=== PATIENT | female | born 1935 | race Caucasian/White ===

== ENCOUNTER 2016-05-01 17:00 | Inpatient (IN) | payer MEDICARE, OTHER ==
[2016-05-01] MEDS ORDERED: DILTIAZEM 25 MG/5 ML VIAL IV ONE (17:13)
--- NOTE | 2016-05-01 17:36 | DIRPT ---
CLINICAL DATA: Shortness of breath. EXAM: PORTABLE CHEST 1 VIEW COMPARISON: 02/25/2016 FINDINGS: The heart size and mediastinal contours are within normal limits. Blunting of the left costophrenic angle is identified. The visualized skeletal structures are unremarkable. IMPRESSION: Blunting of left costophrenic angle noted suspicious for left effusion. Electronically Signed By: Landy Devlin M.D. On: 05/01/2016 17:33
[2016-05-01] MEDS ORDERED: Diltiazem HCl 100 MG in D5W 100 ML IV SCH (17:39)
[2016-05-01 17:43] LABS: AUTOMATED BASOPHIL 0.9 % (0-2); AUTOMATED EOSINOPHIL 0.5 % (0-5); AUTOMATED LYMPH 22.3 % (17-44); AUTOMATED MONOCYTE 10.4 % (3-10); AUTOMATED NEUTROPHIL 65.9 % (45-76); MPV 8.1 fL (7.4-10.4)
[2016-05-01 18:02] LABS: LEUKOCYTES/URINE NEG (NEGATIVE); NITRITE/URINE NEG (NEGATIVE); RBC/URINE 0-2 (0-5); URINE OCCULT BLOOD NEG (NEG/TRACE); WBC/URINE 0-2 (0-5)
[2016-05-01 18:06] LABS: BLOOD UREA NITROGEN 18 MG/DL (7-17); CALC CORRECTED 9.7 MG/DL (8.4-10.2); CALCIUM 9.5 MG/DL (8.4-10.2); CALCULATED OSMOLALITY 269 MOs/Kg (270-290); CHLORIDE 102 mEq/L (98-107); GLUCOSE 124 mg/dL (70-99); SODIUM LEVEL 138 mEq/L (137-146); TOTAL PROTEIN 6.6 G/DL (6.3-8.2)
--- NOTE | 2016-05-01 18:09 | EDPRACDOC ---
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 01/02/16 Furosemide [Lasix] 40 mg PO DAILY #60 tablet 01/02/16 Amiodarone [Cordarone, Pacerone] 200 mg PO DAILY 05/01/16 Cholecalciferol (Vitamin D3) [Vitamin D3] 2,000 unit PO DAILY 05/01/16 Allergies/Adverse Reactions: Allergies Allergy/AdvReac Type Severity Reaction Status Date / Time No Known Allergies Allergy Verified 05/01/16 17:13 - History of Present Illness Onset: travel pta HPI: PT SAID THAT SHE CAN'T CATCH HER BREATH. SHE WENT TO SEE HER PCP AND WAS SENT HERE. PT DENIES CP. SHE SAID THAT SHE CAN'T FEEL THE IRREGULAR HR. Symptoms Started: Reports: Suddenly Relevant History: Reports: Arrhythmia Pulse is: Irregular, Rapid Worsens with: Reports: Exertion Associated signs & symptoms: Reports: None Chest Pain Location: Reports: No Pain Pain Quality: Reports: None Pain Radiation: Reports: None ED Past Medical History - Patient Medical History Neurological History: Reports: Cerebrovascular Accident (WITH RIGHT SIDED WEAKNESS. 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 PER FAMILY) Cardiac History: Reports: Atrial Fibrillation (Paroxysmal in 2009; resolved.), Hypertension, Hypercholesterolemia Psychological History: Denies: Depression, Substance Use Disorder Surgical History: Reports: Hysterectomy (1980s), Hernia Surgery (Right inguinal hernia repair), Other (Hemorrhoidectomy) - Family Medical History Reports: Cardiac Disorders (Sibling.). Denies: Cancer (Brother with colon polyps but no colon cancer) - Social Medical History Smoking Status: Never smoker Social History: Denies: Substance Use Disorder ETOH: None Substance Abuse: None Lives In: Home EDM Review of Systems - Review of Systems ROS Negative Except as Marked: Yes All systems reviewed and were negative except as marked Respiratory: Shortness of Breath - Physical Exam Constitutional: Alert (Awake), No apparent distress Oriented to: Time, Person, Place Last recorded Vital Signs: Last Vital Signs Temp 97.8 F 05/01/16 17:13 Pulse 114 05/01/16 18:06 Resp 18 05/01/16 18:06 BP 166/87 05/01/16 18:06 Pulse Ox 93 05/01/16 18:06 Oxygen Pulse Oxygen Saturation 93 O2 Device Room Air Oxygen Flow Rate Fraction of Inspired Oxygen ( FIO2) - HEENT Head: Normal ( normocephalic) Eye Exam: Normal (PERRL, EOMI, Sclera white) Oropharynx: Normal (Pharynx:Moist without exudate,Gums-no swelling) ENT EAC: Normal TMJ: Normal Nose: No Symptoms Reported (septum midline) Neck: Normal (FROM, trachea at midline) - Respiratory/Cardiovascular Respiratory: Normal - CTA Cardiovascular: Tachycardia, Irregular - GI Auscultation: Normal (NABS) Palpation: Normal (Soft,No rebound or guarding, non distended) Tenderness: Non tender Abraham's Sign: Negative - Musculoskeletal Back: Normal (Non-Tender) Extremities: Normal (Normal tone, Pulses 2+ No cyanosis or edema, FROM) - Integumentary Skin: Normal, Warm, Dry Lymphatics: Normal (no adenopathy) - Neurologic Memory Impaired: Normal Motor Function: Normal (Normal tone, Pulses 2+ No cyanosis or edema, FROM) Cranial Nerve: Normal (CN II-X11 intact sensation, strength 5/5) Cerebellar: Normal Mood Description: Normal Thought: Coherent Perception: Normal - Re-evaluation Re-evaluation 1 Re-evaluation Time: 18:33 (HR STILL HIGH. PT NOW HAS A FEVER.) - Results 05/01/16 17:10 05/01/16 17:31 WBC 15.9 xk/uL (3.8-10.8) H 05/01/16 17:10 RBC 4.45 xM/uL (4.20-5.40) 05/01/16 17:10 Hgb 13.6 g/dL (12.0-16.0) 05/01/16 17:10 Hct 41.4 % (36-47) 05/01/16 17:10 MCV 93 fL (81-99) 05/01/16 17:10 MCH 30.6 pg (27-32) 05/01/16 17:10 MCHC 32.9 g/dl (33-36) L 05/01/16 17:10 RDW 16.3 % (11.5-14.5) H 05/01/16 17:10 Plt Count 217 xk/uL (130-400) 05/01/16 17:10 MPV 8.1 fL (7.4-10.4) 05/01/16 17:10 Neut % (Auto) 65.9 % (45-76) 05/01/16 17:10 Lymph % (Auto) 22.3 % (17-44) 05/01/16 17:10 [place] % (Auto) 10.4 % (3-10) H 05/01/16 17:10 Eos % (Auto) 0.5 % (0-5) 05/01/16 17:10 Baso % (Auto) 0.9 % (0-2) 05/01/16 17:10 Absolute Neuts (auto) 10.34 xk/uL (1.7-8.2) H 05/01/16 17:10 Absolute Lymphs (auto) 3.50 xk/uL (0.65-4.75) 05/01/16 17:10 Urine Color Yellow 05/01/16 17:43 Urine Clarity Clear 05/01/16 17:43 Urine pH 5.0 (5.0-8.0) 05/01/16 17:43 Ur Specific [place] 1.015 (1.003-1.035) 05/01/16 17:43 Urine Protein Neg (NEG/TRACE) 05/01/16 17:43 Urine Glucose (UA) Neg (NEGATIVE) 05/01/16 17:43 Urine Ketones Neg (NEGATIVE) 05/01/16 17:43 Urine Occult Blood Neg (NEG/TRACE) 05/01/16 17:43 Urine Nitrite Neg (NEGATIVE) 05/01/16 17:43 Urine Bilirubin Neg (NEGATIVE) 05/01/16 17:43 Urine Urobilinogen <2.0 MG/DL (0-1) 05/01/16 17:43 Ur Leukocyte Esterase Neg (NEGATIVE) 05/01/16 17:43 Urine RBC 0-2 (0-5) 05/01/16 17:43 Urine WBC 0-2 (0-5) 05/01/16 17:43 Ur Epithelial Cells Occ 05/01/16 17:43 Urine Bacteria Few (NEG/FEW) 05/01/16 17:43 Urine Mucus Occ (NEG/OCC) 05/01/16 17:43 Lab Results 05/01/16 05/01/16 17:43 17:10 WBC 15.9 H RBC 4.45 Hgb 13.6 Hct 41.4 MCV 93 MCH 30.6 MCHC 32.9 L RDW 16.3 H Plt Count 217 MPV 8.1 Neut % (Auto) 65.9 Lymph % (Auto) 22.3 [place] % (Auto) 10.4 H Eos % (Auto) 0.5 Baso % (Auto) 0.9 Absolute Neuts (auto) 10.34 H Absolute Lymphs (auto) 3.50 Urine Color Yellow Urine Clarity Clear Urine pH 5.0 Ur Specific [place] 1.015 Urine Protein Neg Urine Glucose (UA) Neg Urine Ketones Neg Urine Occult Blood Neg Urine Nitrite Neg Urine Bilirubin Neg Urine Urobilinogen <2.0 Ur Leukocyte Esterase Neg Urine RBC 0-2 Urine WBC 0-2 Ur Epithelial Cells Occ Urine Bacteria Few Urine Mucus Occ - EKG EKG #1 Initial EKG Time: 17:09 -: Yes EKG interpreted by me Rate: bpm: 122 [place]: Normal Rhythm: Afib Block: None Hypertrophy: None ST: Normal Comparison: 12/31/15 - Diagnostic Imaging Chest Image interpreted by: Radiologist Blunting of left costophrenic angle noted suspicious for left effusion. ED Critical Care Note - Critical Care Note Total Time (mins): 30 - Departure Yes I personally saw and evaluated the patient. Disposition: Admit IP To This Hospital Condition: Serious Final Diagnosis: Atrial fibrillation with RVR, Fever, BIANCHI ZONE TROPONIN, Pleural effusion, left Instructions: Chest Pain (ED), A-fib (Atrial Fibrillation) (ED) Education/Counseling Given To: Patient Education/Counseling Given Regarding: Diagnosis, Treatment Referrals: Jake Diallo MD [Primary Care Provider] - One Week Prescriptions: No Action Rosuvastatin [Crestor] 10 mg PO HS Potassium Chloride [Klor-Con M20] 20 meq PO DAILY Losartan/Hydrochlorothiazide [Hyzaar 50-12.5 Tablet] 1 tab PO DAILY HydrALAZINE (Cardiovascular) [Apresoline] 12.5 mg PO TID Mirtazapine [Remeron] 15 mg PO HS Furosemide [Lasix] 40 mg PO DAILY #60 tablet Aspirin [Aspirin EC] 325 mg PO DAILY #120 tablet. Cholecalciferol (Vitamin D3) [Vitamin D3] 2,000 unit PO DAILY Amiodarone [Cordarone, Pacerone] 200 mg PO DAILY Forms: ED Discharge Instructions Decision to Admit Time: 18:43 Decision to admit date: 05/01/16 Decision to admit: from ED - Physician Consulted Hospitalist Provider Called: Katie Tillman
[2016-05-01 18:17] LABS: PARTIAL THROMB. TIME 20.1 SEC (22-35); PT-INR 1.1
[2016-05-01] MEDS ORDERED: METOPROLOL 5 MG/5 ML SDV IV ONE (18:21)
[2016-05-01] MEDS ORDERED: ASPIRIN 325 MG TAB PO ONE (18:32)
[2016-05-01] MEDS ORDERED: ACETAMINOPHEN 325 MG/TAB TABLET PO ONE (18:33)
[2016-05-01] MEDS ORDERED: ACETAMINOPHEN 325 MG/TAB TABLET PO PRN (19:34)
[2016-05-01] MEDS ORDERED: ONDANSETRON HCL 4 MG/2 ML VIAL IV PRN (19:34)
[2016-05-01] MEDS ORDERED: Aluminum;Magnesium;Simethicone 30 ML UDC PO PRN (19:34)
[2016-05-01] MEDS ORDERED: SODIUM CHLORIDE 0.9% 3 ML FLUSH FLUSH PRN (19:34)
[2016-05-01] MEDS ORDERED: BENZONATATE 100 MG PERLES PO PRN (19:34)
[2016-05-01] MEDS ORDERED: MAGNESIUM HYDROXIDE 30 ML BOTTLE PO PRN (19:34)
[2016-05-01] MEDS ORDERED: TUSSIONEX 5 ML ORAL SYRINGE PO PRN (19:34)
[2016-05-01] MEDS ORDERED: IBUPROFEN 400 MG TAB PO PRN (19:34)
[2016-05-01] MEDS ORDERED: IBUPROFEN 400 MG TAB PO ONE ×2 (19:47→19:50)
--- NOTE | 2016-05-01 19:49 | HISTPHYS ---
- Chief Complaint Patient sent in from urgent care with atrial fibrillation with rapid ventricular response - History of Present Illness This is a very pleasant 80-year-old female with a long history of paroxysmal atrial fibrillation hospitalization in December of 2015 for bradycardia at which point her rate control medications were held she was discharged home in ultimately restarted on amiodarone. She presented today to her local urgent care with complaints of cough weakness fever tachycardia and body aches for about 2 days with associated shortness of breath. During evaluation she was noted to be in atrial fibrillation with a rapid ventricular response with initial heart rates in the 140s and she was transferred to [facility] for further evaluation and management. In our emergency department she was given fluids and started on an diltiazem drip after a diltiazem bolus and her heart rate has improved. On initial evaluation in our emergency department the patient did not have a fever however on recheck her temperature was elevated above 101. In the emergency department the patient is confused and has become more so where initially she was able to tell me that she did have any pain she has become more confused with rising temperature. We are going to try some ibuprofen at the present time. She will be admitted into the hospital for atrial fibrillation with rapid ventricular response brought on by flu-like illness. - Medical History Cardiac History: Reports: Atrial Fibrillation (Paroxysmal in 2009; resolved.), Hypertension, Hypercholesterolemia Respiratory History: Reports: No Significant History GI/ History: Reports: No Significant History Musculoskeletal History: Reports: No Significant History Systemic History: Reports: No Significant History Neurological History: Reports: Cerebrovascular Accident (WITH RIGHT SIDED WEAKNESS. 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 PER FAMILY) Psychological History: Denies: Depression, Substance Use Disorder - Surgical History Reports: Hysterectomy (), Hernia Surgery (Right inguinal hernia repair), Other (Hemorrhoidectomy) - Medictions/Allergies Allergies No Known Allergies Allergy (Verified 05/01/16 17:13) Current Medication List: Reviewed Home Medications Losartan/Hydrochlorothiazide [Hyzaar 50-12.5 Tablet] 1 tab PO DAILY 06/28/14 Potassium Chloride [Klor-Con M20] 20 meq PO DAILY 06/28/14 Rosuvastatin [Crestor] 10 mg PO HS 06/28/14 HydrALAZINE (Cardiovascular) [Apresoline] 12.5 mg PO TID 12/31/15 Mirtazapine [Remeron] 15 mg PO HS 12/31/15 Aspirin [Aspirin EC] 325 mg PO DAILY #120 tablet. 01/02/16 Furosemide [Lasix] 40 mg PO DAILY #60 tablet 01/02/16 Amiodarone [Cordarone, Pacerone] 200 mg PO DAILY 05/01/16 Cholecalciferol (Vitamin D3) [Vitamin D3] 2,000 unit PO DAILY 05/01/16 - Family History Reports: Cardiac Disorders (Sibling.). Denies: Cancer (Brother with colon polyps but no colon cancer) - Social History Travel Outside of [place] in the Last 3 Months?: No Lives: with Spouse Smoking Status: Never smoker Social History: Denies: Alcohol Use, Substance Use Disorder Patient live in a very precarious position. His health has been declining and the patient's dementia has been worsening. 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 I spoke at length with Dr. MARISCAL who is very familiar with their situation and he is very concerned about her. She is not anticoagulated for her atrial fibrillation due to her significant risks of falls and her forgetfulness. - Review of Systems Yes Review of systems cannot be obtained due to the patient's medical condition - Physical Exam Vital Signs: Initial Vitals Temperature 97.8 F 05/01/16 17:13 Pulse Rate 126 H 05/01/16 17:13 Respiratory Rate 18 05/01/16 17:13 Blood Pressure 164/83 05/01/16 17:13 Pulse Oxygen Saturation 98 05/01/16 17:13 Selected Entries 05/01/16 19:38 Temperature 101.5 F H Pulse Rate 89 Respiratory 20 Rate Blood Pressure 84 Mean Blood Pressure 124/65 Pulse Oxygen 92 Saturation VS Activity (if At Rest on Room Applicable) Air Constitutional: Confused, Distress ([id number]), Well nourished. negative : Restless, Well appearing Oriented to: Time, Person, Place - HEENT Head: Normal (normocephalic, atraumatic.), Other (No cervical lymphadenopathy. No supraclavicular lymphadenopathy. Neck: No palpable mass, supple , trachea midline.) Eye: Normal (pupils equal, reactive to light, and round; EOMI, Sclera white) Oropharynx: Normal (Pharynx: Moist without exudate,Gums-no swelling, No oropharyngeal lesions or erythema, Mucous membranes are dry.) Nose: No Symptoms Reported (septum midline, Nares patent, without discharge or bleeding.) Respiratory: Normal - CTA (Clear to auscultation bilaterally. No wheezing, rales , rhonchi. Chest wall movements are symmetric. No use of accessory muscles to breathe.) Cardiovascular: Normal (RRR , Normal S1, S2. No murmurs, rubs, or gallops. PMI non-displaced. Carotids: no carotid bruits. No bradycardia or tachycardia. DP pulses 2+ bilaterally.) - GI Auscultation: Normal (normal active sounds) Palpation: Normal (Soft,non distended,nontender. No hepatosplenomegaly.) Tenderness: Non tender (No rebound or guarding) Abraham's Sign: Negative - Musculoskeletal Back: Normal (Non-Tender) Extremities: Normal (Normal tone, DP pulses 2+ bilaterally, No cyanosis or edema bilaterally, FROM bilaterally.) - Integumentary Skin: Hot, Flushed. negative: Normal, Diaphoretic, Petechiae Lymphatics: Normal (No cervical lymphadenopathy. No supraclavicular lymphadenopathy.) - Neurologic Memory Impaired: Normal Motor Function: Normal (Motor 5/5 throughout.Normal tone, Pulses 2+ No cyanosis or edema, FROM) Cranial Nerve: Normal (CN II-XII intact sensation, strength 5/5) Cerebellar: Normal (Babinski: toes downgoing bilaterally. Intact Finger to nose. Sensory grossly intact to light touch. Intact rapid alternating movements bilaterally. No pronator drift.) Mood Description: Normal (Fully oriented. Normal and appropriate affect.) Perception: Normal (Normal and appropriate affect.) - Focused CV Perfusion Exam Vital Signs: Last Vital Signs Temp 101.5 F H 05/01/16 19:38 Pulse 89 05/01/16 19:38 Resp 20 05/01/16 19:38 BP 124/65 05/01/16 19:38 Pulse Ox 92 05/01/16 19:38 - Lab Results Laboratory Results - last 24 hr 05/01/16 05/01/16 05/01/16 17:10 17:31 17:31 WBC 15.9 H RBC 4.45 Hgb 13.6 Hct 41.4 MCV 93 MCH 30.6 MCHC 32.9 L RDW 16.3 H Plt Count 217 MPV 8.1 Neut % (Auto) 65.9 Lymph % (Auto) 22.3 [place] % (Auto) 10.4 H Eos % (Auto) 0.5 Baso % (Auto) 0.9 Absolute Neuts (auto) 10.34 H Absolute Lymphs (auto) 3.50 PT 11.4 H INR 1.1 APTT 20.1 L Sodium 138 Potassium 3.6 Chloride 102 Carbon Dioxide 27 Anion Gap 13 BUN 18 H Creatinine 1.30 H Estimated GFR (MDRD) 40 L Glucose 124 H Calculated Osmolality 269 L Lactic Acid Calcium 9.5 Corrected Calcium 9.7 Total Bilirubin 0.9 AST 24 ALT 27 Alkaline Phosphatase 71 Troponin I 0.05 Total Protein 6.6 Albumin 3.8 Urine Color Urine Clarity Urine pH Ur Specific [place] Urine Protein Urine Glucose (UA) Urine Ketones Urine Occult Blood Urine Nitrite Urine Bilirubin Urine Urobilinogen Ur Leukocyte Esterase Urine RBC Urine WBC Ur Epithelial Cells Urine Bacteria Urine Mucus 05/01/16 05/01/16 17:43 18:45 WBC RBC Hgb Hct MCV MCH MCHC RDW Plt Count MPV Neut % (Auto) Lymph % (Auto) [place] % (Auto) Eos % (Auto) Baso % (Auto) Absolute Neuts (auto) Absolute Lymphs (auto) PT INR APTT Sodium Potassium Chloride Carbon Dioxide Anion Gap BUN Creatinine Estimated GFR (MDRD) Glucose Calculated Osmolality Lactic Acid 1.8 Calcium Corrected Calcium Total Bilirubin AST ALT Alkaline Phosphatase Troponin I Total Protein Albumin Urine Color Yellow Urine Clarity Clear Urine pH 5.0 Ur Specific [place] 1.015 Urine Protein Neg Urine Glucose (UA) Neg Urine Ketones Neg Urine Occult Blood Neg Urine Nitrite Neg Urine Bilirubin Neg Urine Urobilinogen <2.0 Ur Leukocyte Esterase Neg Urine RBC 0-2 Urine WBC 0-2 Ur Epithelial Cells Occ Urine Bacteria Few Urine Mucus Occ - Diagnostic Findings PORTABLE CHEST 1 VIEW COMPARISON: 02/25/2016 FINDINGS: The heart size and mediastinal contours are within normal limits. Blunting of the left costophrenic angle is identified. The visualized skeletal structures are unremarkable. IMPRESSION: Blunting of left costophrenic angle noted suspicious for left effusion. Electronically Signed By: Landy Devlin M.D. On: 05/01/2016 17:33 - Assessment (1) Atrial fibrillation with RVR I48.91 - UNSPECIFIED ATRIAL FIBRILLATION Acute Present on Admission: Yes Patient will be admitted into the PCU on a diltiazem drip. I have spoken to Dr. MARISCAL he states that she is extremely high risk for anticoagulation given her dementia her and stable gait and her forgetfulness. She is not anticoagulated for that reason. She has been started on a diltiazem drip and her heart rate is responding nicely. I believe that some of her heart rate issues are related to her acute flu like illness with fever. (2) Flu-like symptoms R68.89 - OTHER GENERAL SYMPTOMS AND SIGNS Acute Present on Admission: Yes Will check patient for influenza hydrate her and provide symptomatic medications. (3) Acute confusion due to infection F05 - DELIRIUM DUE TO KNOWN PHYSIOLOGICAL CONDITION Acute Present on Admission: Yes Patient has episodes of becoming very confused when she gets ill. She currently has a fever and her confusion has worsened her fever did not respond to Tylenol. She will be getting IV ibuprofen at this point. (4) Fever R50.9 - FEVER, UNSPECIFIED Acute Present on Admission: Yes Qualifiers: Fever type: unspecified Qualified Code(s): R50.9 - Fever, unspecified Fever is likely due to flu-like illness. Will provide antipyretics and monitor closely. (5) Pleural effusion, left J90 - PLEURAL EFFUSION, NOT ELSEWHERE CLASSIFIED Acute Present on Admission: Yes Patient has a pulmonary nodule she had a PET scan done in February that was negative for signs or consistent findings with cancer. At this point will monitor closely. (6) Dementia F03.90 - UNSPECIFIED DEMENTIA WITHOUT BEHAVIORAL DISTURBANCE Acute Qualifiers: Dementia type: unspecified type Dementia behavioral disturbance: without behavioral disturbance Qualified Code(s): F03.90 - Unspecified dementia without behavioral disturbance Will monitor closely and provide supportive care. Expect patient will have episodes of sundowning while in the hospital. Case Care Discussed with: Patient, Consultants (Dr. MARISCAL), Family, Nursing Staff Total Time: 55 minutes Critical Care: No Couseling Time (>50% in counseling/coordination): No
[2016-05-01] MEDS ORDERED: IBUPROFEN INTRAVENOUS 400 MG in NS 100 ML IV PRN (19:59)
[2016-05-01] MEDS ORDERED: Enoxaparin 0.5 mg per kg per dose SQ SCH (20:00)
[2016-05-01] MEDS: ENOXAPARIN 40 MG/0.4 ML PFS SQ SCH (21:55)
[2016-05-01] MEDS: NS/KCl 20 mEq 1,000 ML IV SCH (21:56)
[2016-05-01] MEDS: MIRTAZAPINE 15 MG TAB PO SCH (21:56)
[2016-05-01] MEDS: hydrALAZINE 25 MG TAB PO SCH (21:56)
[2016-05-01] MEDS: ROSUVASTATIN 10 MG TAB PO SCH (21:56)
[2016-05-01] MEDS ORDERED: Vaccine Screening Complete SCH (22:00)
[2016-05-02] MEDS: Diltiazem HCl 100 MG in D5W 100 ML IV SCH ×3 (04:30→10:40)
[2016-05-02] MEDS: SODIUM CHLORIDE 0.9% 3 ML FLUSH FLUSH SCH ×2 (04:31→17:36)
[2016-05-02] MEDS: hydrALAZINE 25 MG TAB PO SCH ×3 (04:31→21:46)
[2016-05-02 05:06] LABS: AUTOMATED EOSINOPHIL 2.2 % (0-5); AUTOMATED LYMPH 38.9 % (17-44); AUTOMATED MONOCYTE 11.3 % (3-10); AUTOMATED NEUTROPHIL 46.6 % (45-76)
[2016-05-02 05:12] LABS: PARTIAL THROMB. TIME 24.7 SEC (22-35); PT-INR 1.1
[2016-05-02 05:18] LABS: BLOOD UREA NITROGEN 18 MG/DL (7-17); CALCULATED OSMOLALITY 270 MOs/Kg (270-290); CHLORIDE 104 mEq/L (98-107); GLUCOSE 92 mg/dL (70-99); SODIUM LEVEL 139 mEq/L (137-146)
[2016-05-02] MEDS: NS/KCl 20 mEq 1,000 ML IV SCH ×3 (05:50→17:36)
[2016-05-02] MEDS: FUROSEMIDE 40 MG TAB PO SCH (07:35)
[2016-05-02] MEDS: POTASSIUM CHLORIDE 20 MEQ TAB PO SCH (07:35)
[2016-05-02] MEDS: AMIODARONE 200 MG TAB PO SCH (07:35)
[2016-05-02] MEDS: CHOLECALCIFEROL 1000 UNITS TAB PO SCH (07:35)
[2016-05-02] MEDS: Aspirin (Orange Enteric Coated) 325 mg tab PO SCH (07:36)
[2016-05-02] MEDS: LOSARTAN KCL/HCTZ 50-12.5 TAB PO SCH (07:36)
[2016-05-02] MEDS ORDERED: Non-Formulary Medication ITEM (Cholecalciferol (Vitamin D3) [Vitamin D3] 2,000 UNIT) PO SCH (09:00)
--- NOTE | 2016-05-02 10:44 | GENMEDPROG ---
Chief Complaint: Weakness malaise, atrial fibrillation Subjective Note: She is still feeling quite weak, but no specific complaints such as chest pain, fevers or nausea. Notes Reviewed: Yes: Events from last night noted and discussed with Clinical Staff Current Medication List: Reviewed Currently: Reports: Cough. Denies: Nausea and Vomiting, Abdominal Pain, Fever/ Chills, Chest Pain DVT Prophylaxis: Yes - Physical Examination Vital Signs and I&O: Last Vital Signs Temp 97.6 F 05/02/16 07:45 Pulse 105 05/02/16 10:00 Resp 18 05/02/16 07:45 BP 136/72 05/02/16 07:45 Pulse Ox 94 05/02/16 07:45 Oxygen Pulse Oxygen Saturation 94 O2 Device Nasal Cannula Oxygen Flow Rate 2 Fraction of Inspired Oxygen ( FIO2) Intake & Output 04/30/16 05/01/16 05/02/16 05/03/16 06:59 06:59 06:59 06:59 Intake Total 697 240 Output Total 700 700 Balance -3 -460 Patient's weight 73.301 kg General: Alert, Oriented x3, Mild distress HEENT: EOMI (Sclera white) Neck: Normal Trachea alignment, Normal inspection Lymphatics: Normal (No cervical lymphadenopathy. No supraclavicular lymphadenopathy.) Respiratory: Normal - CTA (Clear to auscultation bilaterally. No wheezing, rales , rhonchi. Chest wall movements are symmetric. No use of accessory muscles to breathe.) Cardiovascular: No Gallops,Rubs/Murmurs, Irregular GI: Normal bowel sounds, Soft, Non tender (non distended) Extremities/Musculoskeletal: Other (Normal Tone). negative: Edema, Cyanosis Skin: No rashes, No significant lesion Lab/DI/Studies Reviewed: Laboratory Tests 05/01/16 05/02/16 05/02/16 17:31 04:35 04:35 WBC INR Potassium 4.1 BUN 18 H Creatinine 1.30 H 1.40 H Troponin I 0.06 05/02/16 05/02/16 04:35 04:35 WBC 12.3 H INR 1.1 Potassium BUN Creatinine Troponin I - Assessment (1) Acute confusion due to infection Acute F05 - DELIRIUM DUE TO KNOWN PHYSIOLOGICAL CONDITION Comment/Plan: Patient has episodes of becoming very confused when she gets ill. When initially admitted in her fever. This morning, she seems to be much less confused and is perhaps improving. (2) Atrial fibrillation with RVR Acute I48.91 - UNSPECIFIED ATRIAL FIBRILLATION Comment/Plan: Patient was admitted to the PCU on diltiazem drip. Admitting physician spoke with on-call Cardiology and he felt that she was extremely high risk for anticoagulation given her dementia, gait instability and forgetfulness. This is the reason she is not already anticoagulated. She was started on diltiazem drip and was given a dose of p.o. amiodarone this morning. She will be seen in consultation by Cardiology later today. (3) Dementia Acute F03.90 - UNSPECIFIED DEMENTIA WITHOUT BEHAVIORAL DISTURBANCE Qualifiers: Dementia type: unspecified type Dementia behavioral disturbance: without behavioral disturbance Qualified Code(s): F03.90 - Unspecified dementia without behavioral disturbance Comment/Plan: Will monitor closely and provide supportive care. Expect patient will have episodes of sundowning while in the hospital. (4) Flu-like symptoms Acute R68.89 - OTHER GENERAL SYMPTOMS AND SIGNS Comment/Plan: Will check patient for influenza hydrate her and provide symptomatic medications. (5) CKD (chronic kidney disease) stage 3, GFR 30-59 ml/min Chronic N18.3 - CHRONIC KIDNEY DISEASE, STAGE 3 (MODERATE) Comment/Plan: monitor renal function closely Case Care Discussed with: Patient, Nursing Staff Total Time: 40
--- NOTE | 2016-05-02 11:06 | PCM.CARDCO ---
Consultation Date: 05/02/16 Requesting Physician: Zacarias Shankar (afib/rvr) Consulting Doctor: Mayur Saavedra Consult Reason: Dysrhythmia Travel Outside of [place] in the Last 3 Months?: No Consultation Note: History of Present Illness: Pt is a 80 yo WF followed primarily by Dr. Jake Diallo and for Cardiology by our Dr. Bell for problems of HBP, dyslipidemia, prior CVAs , dementia and paroxysmal atrial fibrillation suppressed on amiodarone. She was stable when last seen in office and her f/u is current. Pt is confused at present, unable to provide full hx or reliable review of systems She Denies pain, SOB. Records indicate she sought eval in urgent care yesterday for fever, cough weakness, was found to be in afib with RVR and sent to ER, where she was febrile to 101.5, and Dr. Tillman noted increasing confusion during her initial assessment. Past Medical History: HBP, dyslipidemia, parox afib as noted Past Surgical History: No prior cardiac cath Allergies No Known Allergies Allergy (Verified 05/01/16 17:13) Home Medications Losartan/Hydrochlorothiazide [Hyzaar 50-12.5 Tablet] 1 tab PO DAILY 06/28/14 Potassium Chloride [Klor-Con M20] 20 meq PO DAILY 06/28/14 Rosuvastatin [Crestor] 10 mg PO HS 06/28/14 HydrALAZINE (Cardiovascular) [Apresoline] 12.5 mg PO TID 12/31/15 Mirtazapine [Remeron] 15 mg PO HS 12/31/15 Aspirin [Aspirin EC] 325 mg PO DAILY #120 tablet. 01/02/16 Furosemide [Lasix] 40 mg PO DAILY #60 tablet 01/02/16 Amiodarone [Cordarone, Pacerone] 200 mg PO DAILY 05/01/16 Cholecalciferol (Vitamin D3) [Vitamin D3] 2,000 unit PO DAILY 05/01/16 Family History: - unable to review at present Social History: Traveled outside the [place] in the last 3 months? No Never smoker ADDENDUM 05/04/16 hx from dtr-in-law Radha: pt living alone, struggling, not doing well. Pt's is in [facility] in [place]. Son and dtr-in-law also live in [place] Review of Systems: (pt unable to provide reliable ROS at present) Physical Examination: Temperature: 97.6 F (05/02/16 07:45)HR: 105 (05/02/16 10:00)RR: 18 (05/02/16 07 :45)BP: 136/72 (05/02/16 07:45) SAT:94 (05/02/16 07:45) [] Intake & Output 04/29/16 04/30/16 05/01/16 05/02/16 23:59 23:59 23:59 23:59 Intake Total 115 822 Output Total 600 1200 Balance -485 -378 Patient's weight 71.804 kg 73.301 kg Physical Exam GEN: Elderly lady, barely responds to questions. NAD VS: as above HEENT: neck veins plethoric at 20 degress HOB, carotids normal CHEST: clear, anterior/lateral COR: irreg irreg, janet s1, preserved s2, no s3 Gr 1/6 NELSON R2ICS. NO distinct MR murmur ABD: soft, non-tender. No organomegaly or mass. EXTREM: rad, PT 2+ bilat , no edema SKIN: warm, dry NEURO: confused. No facial asymmetry . No tremor. Moving all 4 ext. LAB/DI: [] Laboratory Tests 05/01/16 05/01/16 05/02/16 17:31 23:20 01:55 WBC Hgb Hct Plt Count INR Sodium Potassium Chloride Carbon Dioxide BUN Creatinine Estimated GFR (MDRD) Troponin I 0.07 0.06 TSH 3.02 05/02/16 05/02/16 05/02/16 04:35 04:35 04:35 WBC 12.3 H Hgb 12.9 Hct 39.0 Plt Count 209 INR Sodium 139 Potassium 4.1 Chloride 104 Carbon Dioxide 29 BUN 18 H Creatinine 1.40 H Estimated GFR (MDRD) 36 L Troponin I 0.06 TSH 05/02/16 04:35 WBC Hgb Hct Plt Count INR 1.1 Sodium Potassium Chloride Carbon Dioxide BUN Creatinine Estimated GFR (MDRD) Troponin I TSH CXR: no infiltrate or CHF EKG 05/01/2016: afib, RVR, poor ant R wave progression, no ST shift during tachycardia 05/02/2016: afib, HR down to 107, no ST shift or evolutiong Last echo: 2013: normal LV systolic function, mild MR, mild LAE. f/u Echo pending today IMPRESSION: - recurrent afib/RVR on amio 200/day, ? duration, in setting of: - acute febrile illness, probably viral - hx of CVA/dementia - ? candidacy for long-term anticoagulation - Recommendations REC: agree with IV diltiazem for rate control but needs to be titrated plan to re-introduce po metoprolol as adjuct for rate control - provisionally, start po Xarelto, reduced dose, to reduce embolic risk - f/u echo pending
[2016-05-02] MEDS ORDERED: METOPROLOL 5 MG/5 ML SDV IV ONE (12:00)
--- NOTE | 2016-05-02 13:13 | CAPUEKG ---
[place], [place] Test Date: 2016-05-02 Pat Name: LUCIO MERCEDES Department: Room: 448 Gender: Female Wildlife Conservationist: : Requested By: Order Number: Reading MD: Mayur Saavedra Measurements Intervals [place] Rate: 107 P: [place]: QRS: -3 QRSD: 72 T: -17 QT: 338 QTc: 451 Interpretive Statements Atrial fibrillation with rapid ventricular response Nonspecific ST abnormality, probably digitalis effect No change from prior tracing. Abnormal ECG Electronically Signed On 05-02-16 13:13:05 EST by Mayur Saavedra <[id number]> [id number]
[2016-05-02] MEDS: METOPROLOL TARTRATE 50 MG TAB PO SCH ×2 (14:43→21:46)
[2016-05-02] MEDS ORDERED: NS IV SCH (15:25)
[2016-05-02] MEDS ORDERED: KCL IV SCH (15:25)
[2016-05-02] MEDS ORDERED: Medication Special Instructions SCH (16:00)
[2016-05-02] MEDS ORDERED: NS 500 ML IV ONE (16:00)
[2016-05-02] MEDS: ENOXAPARIN 40 MG/0.4 ML PFS SQ SCH (17:36)
[2016-05-02] MEDS: ROSUVASTATIN 10 MG TAB PO SCH (21:46)
[2016-05-02] MEDS: MIRTAZAPINE 15 MG TAB PO SCH (21:47)
[2016-05-03] MEDS: Diltiazem HCl 100 MG in D5W 100 ML IV SCH ×3 (00:01→20:34)
[2016-05-03] MEDS: SODIUM CHLORIDE 0.9% 3 ML FLUSH FLUSH SCH ×2 (04:57→16:11)
[2016-05-03] MEDS: hydrALAZINE 25 MG TAB PO SCH ×3 (05:01→20:32)
[2016-05-03] MEDS: NS/KCl 20 mEq 1,000 ML IV SCH ×2 (05:01→08:03)
[2016-05-03] MEDS: METOPROLOL TARTRATE 50 MG TAB PO SCH ×3 (05:01→20:33)
[2016-05-03] MEDS: FUROSEMIDE 40 MG TAB PO SCH (08:04)
[2016-05-03] MEDS: Aspirin (Orange Enteric Coated) 325 mg tab PO SCH (08:04)
[2016-05-03] MEDS: POTASSIUM CHLORIDE 20 MEQ TAB PO SCH (08:04)
[2016-05-03] MEDS: LOSARTAN KCL/HCTZ 50-12.5 TAB PO SCH (08:04)
[2016-05-03] MEDS: AMIODARONE 200 MG TAB PO SCH (08:04)
[2016-05-03] MEDS: CHOLECALCIFEROL 1000 UNITS TAB PO SCH (08:04)
--- NOTE | 2016-05-03 08:12 | DIRPT ---
CLINICAL DATA: Fever. EXAM: PORTABLE CHEST 1 VIEW COMPARISON: 05/01/2016 FINDINGS: The lungs are hypoinflated with accentuation of the cardiac shadow and central pulmonary vasculature. Left basilar density has mildly increased and likely reflects a combination of small left pleural effusion and parenchymal lung opacity. There is also new mild right basilar opacity. No overt pulmonary edema or pneumothorax. IMPRESSION: 1. Low lung volumes with increasing bibasilar opacities which may reflect atelectasis and left basilar pneumonia. 2. Small pleural effusion. Electronically Signed By: Ambrosio Esteban M.D. On: 05/03/2016 08:09
--- NOTE | 2016-05-03 09:59 | GENMEDPROG ---
Chief Complaint: Fever, AFib with RVR Subjective Note: No acute events overnight, but still having low-grade fever. Some slight cough. Still atrial fibrillation, rates in the 70s. Notes Reviewed: Yes: Events from last night noted and discussed with Clinical Staff Current Medication List: Reviewed Currently: Reports: Cough. Denies: Nausea and Vomiting, Abdominal Pain, Fever/ Chills, Chest Pain DVT Prophylaxis: Yes - Physical Examination Vital Signs and I&O: Last Vital Signs Temp 98.7 F 05/03/16 08:00 Pulse 82 05/03/16 08:00 Resp 18 05/03/16 08:00 BP 93/56 L 05/03/16 08:00 Pulse Ox 96 05/03/16 09:52 Oxygen Pulse Oxygen Saturation 96 O2 Device Nasal Cannula Oxygen Flow Rate 2 Fraction of Inspired Oxygen ( FIO2) Intake & Output 05/01/16 05/02/16 05/03/16 05/04/16 06:59 06:59 06:59 06:59 Intake Total 697 3253 240 Output Total 700 1350 Balance -3 1903 240 Patient's weight 73.301 kg 74.298 kg General: Alert, Oriented x3, Mild distress HEENT: EOMI (Sclera white) Neck: Normal Trachea alignment, Normal inspection Lymphatics: Normal (No cervical lymphadenopathy. No supraclavicular lymphadenopathy.) Respiratory: Normal - CTA (Clear to auscultation bilaterally. No wheezing, rales , rhonchi. Chest wall movements are symmetric. No use of accessory muscles to breathe.) Cardiovascular: No Gallops,Rubs/Murmurs, Irregular GI: Normal bowel sounds, Soft, Non tender (non distended) Extremities/Musculoskeletal: Other (Normal Tone). negative: Edema, Cyanosis Skin: No rashes, No significant lesion Lab/DI/Studies Reviewed: Laboratory Tests 05/01/16 05/02/16 05/02/16 17:31 04:35 04:35 WBC 12.3 H Hgb 12.9 Hct 39.0 INR Potassium 4.1 Creatinine 1.30 H 1.40 H 05/02/16 04:35 WBC Hgb Hct INR 1.1 Potassium Creatinine - Assessment (1) Acute confusion due to infection Acute F05 - DELIRIUM DUE TO KNOWN PHYSIOLOGICAL CONDITION Comment/Plan: Patient has episodes of becoming very confused when she gets ill. When initially admitted in her fever. Her altered mental status is now improving. (2) Atrial fibrillation with RVR Acute I48.91 - UNSPECIFIED ATRIAL FIBRILLATION Comment/Plan: Patient was admitted to the PCU on diltiazem drip. Patient's amiodarone was continued, and beta-erasto was started by Cardiology. She is still on diltiazem drip, but it will be discontinued later this morning as she is getting borderline hypotensive at her rates are under good control. Cardiology continues to follow , appreciate their input. (3) Dementia Acute F03.90 - UNSPECIFIED DEMENTIA WITHOUT BEHAVIORAL DISTURBANCE Qualifiers: Dementia type: unspecified type Dementia behavioral disturbance: without behavioral disturbance Qualified Code(s): F03.90 - Unspecified dementia without behavioral disturbance Comment/Plan: Will monitor closely and provide supportive care. Expect patient will have episodes of sundowning while in the hospital. (4) Flu-like symptoms Acute R68.89 - OTHER GENERAL SYMPTOMS AND SIGNS Comment/Plan: Influenza negative. (5) CKD (chronic kidney disease) stage 3, GFR 30-59 ml/min Chronic N18.3 - CHRONIC KIDNEY DISEASE, STAGE 3 (MODERATE) Comment/Plan: monitor renal function closely (6) Community acquired pneumonia Acute J18.9 - PNEUMONIA, UNSPECIFIED ORGANISM Comment/Plan: Patient with persistent cough, and continue low-grade fevers. Given chest x-ray abnormality seen this morning, will start the patient empirically on IV azithromycin and Rocephin for possible community-acquired pneumonia.
--- NOTE | 2016-05-03 10:30 | CAPUECHO ---
INDICATION: PAROXYSMAL A-FIB, MILD MR HEIGHT: 165.1 cm (5 ft 5.0 in) WEIGHT: 73.0 kg (161.0 lbs) BP: 136/72 BSA: 1.930765 m MEASUREMENTS 2D RVIDd: 2.8 cm LVOT Diam: 1.9 cm LA Diam: 3.7 cm EF Biplane: 59.01 % LAESV MOD A4C: 71.1 ml LAESV MOD A2C: 87.2 ml LAESV Index (A-L): 51.22 ml/m M-MODE IVSd: 1.3 cm LVIDd: 3.8 cm LVPWd: 1.2 cm LVIDs: 2.7 cm EF(Teich): 57 % Ao Diam: 3.1 cm DOPPLER LVOT Vmax: 0.87 m/s AV Vmax: 1.30 m/s DAMIEN Vmax, Pt: 1.95 cm TR Vmax: 1.06 m/s TR maxP mmHg RVSP: 14.49 mmHg FINDINGS ------- Procedure:2D images, m-mode, color and spectral Doppler were obtained and reviewed. ECG rhythm:Atrial fibrillation. Study quality:Suboptimal image quality - poor subcostal views. Left Ventricle:Mild concentric left ventricular hypertrophy, good contractility throughout, normal c avity size and LVEF b etween 55 - 60 %. No regional wall motion abnormalities were noted. Right Ventricle:The right ventricle is normal in size and function. Left Atrium:Left atrium is severely dilated by volume. Right Atrium:The right atrium is normal in size and function. Aortic Valve:The aortic valve is trileaflet. There is moderate aortic valve sclerosis, minimally re stricted mobitily. There is no evidence of aortic stenosis or regurgitation. Mitral Valve:Normal appearing mitral valve. Mild mitral regurgitation is present. Tricuspid Valve:The tricuspid valve appears structurally normal. Trace tricuspid regurgitation pre sent. Pulmonic Valve:The pulmonic valve is normal. There is no pulmonic regurgitation present. Aorta:The aortic root, ascending aorta and aortic arch appear normal. IVC:Normal inferior vena cava with normal inspiratory collapse. Pericardium:There is no pericardial effusion. CONCLUSIONS 1. mild concentric left ventricular hypertrophy with normal contraction throughout (EF), no segmenta l abnormality 2. aoric sclerosis 3. mild mitral regurgitation, no obvious structural abnormai lty, marked left atrial dilatation in afib 4. normal right heart size/function, only trace TR, no evidence of pulm hypertension Comment: little change from reported findings several years ago cc: Jake Diallo MD; Des Bell MD Electronically Signed By: Mayur Saavedra MD-- Electronically Signed On: 10:22:03
[2016-05-03] MEDS: CEFTRIAXONE 1 GM in D5W 100 ML IV SCH (11:43)
[2016-05-03] MEDS: AZITHROMYCIN 500 MG in D5W 250 ML IV SCH (13:17)
[2016-05-03] MEDS: ENOXAPARIN 40 MG/0.4 ML PFS SQ SCH (16:12)
--- NOTE | 2016-05-03 20:05 | PCM.CARD ---
- Subjective Reason for visit: f/u recurrent afib, persistent, with rvr Subj: pt oriented to place, not day Denies pain, dyspnea. Remains weak. Vital Signs: Last Vital Signs Temp 97.7 F 05/03/16 19:27 Pulse 97 05/03/16 19:27 Resp 18 05/03/16 19:27 BP 116/73 05/03/16 19:27 Pulse Ox 98 05/03/16 19:27 Intake & Output 04/30/16 05/01/16 05/02/16 05/03/16 23:59 23:59 23:59 23:59 Intake Total 115 2874 2779 Output Total 600 1450 1100 Balance -485 1424 1679 Patient's weight 71.804 kg 73.301 kg 74.298 kg PE: Physical Exam GEN: overweight, NAD, Pt coughing non-productively VS: as above HEENT: no gross JVD CHEST: clear anteriorly/ lateral COR: irreg irreg, Gr 1/6 NELSON, no s3 ABD: no distention EXTREM: no edema SKIN: warm, dry NEURO: alert, responsive, speech normal Lab/DI Results Reviewed: Laboratory Tests 05/02/16 05/02/16 04:35 04:35 Sodium 139 Potassium 4.1 Chloride 104 Carbon Dioxide 29 BUN 18 H Creatinine 1.40 H Estimated GFR (MDRD) 36 L Qav-D-Vhgkecoklbq Pept 1800 EKG this AM: afib, rate controlled, no acute ST-T changes tele: rate consistently controlled. IMPRESSION: stable CV status, HR now adequately controlled on oral meds. no CHF component - Plan PLAN: agree with d/c of IV diltiazem at this point. - will titrate po metoprolol to rate control - start low dose xarelto instead of ASA - anticipate afib will be permanent, - anticipate outpt f/u with Dr. Jones to decide on strategy going forward - may stop amio and plan rate/control with full anticoag.
[2016-05-03] MEDS: ROSUVASTATIN 10 MG TAB PO SCH (20:33)
[2016-05-03] MEDS: MIRTAZAPINE 15 MG TAB PO SCH (20:33)
[2016-05-03] MEDS: RIVAROXABAN 10 MG TAB PO SCH (21:48)
[2016-05-03] MEDS ORDERED: TEMAZEPAM 15 MG CAP PO PRN (22:08)
[2016-05-03] MEDS ORDERED: LORAZEPAM 2 MG/ML VIAL IV PRN (22:08)
[2016-05-04] MEDS: hydrALAZINE 25 MG TAB PO SCH ×4 (05:43→21:07)
[2016-05-04] MEDS: SODIUM CHLORIDE 0.9% 3 ML FLUSH FLUSH SCH ×3 (05:44→21:07)
[2016-05-04] MEDS: METOPROLOL TARTRATE 50 MG TAB PO SCH (05:44)
[2016-05-04] MEDS: AMIODARONE 200 MG TAB PO SCH (07:38)
[2016-05-04] MEDS: LOSARTAN KCL/HCTZ 50-12.5 TAB PO SCH (07:38)
[2016-05-04] MEDS: CHOLECALCIFEROL 1000 UNITS TAB PO SCH (07:38)
[2016-05-04] MEDS: FUROSEMIDE 40 MG TAB PO SCH (07:58)
[2016-05-04] MEDS: CEFTRIAXONE 1 GM in D5W 100 ML IV SCH (09:14)
[2016-05-04] MEDS ORDERED: Albuterol/Ipratropium Neb 3 ML NEB NEB PRN (09:23)
--- NOTE | 2016-05-04 09:25 | GENMEDPROG ---
Chief Complaint: Uncontrolled atrial fibrillation, as well as community-acquired pneumonia Subjective Note: She is feeling a little wheezy and short of breath at rest this morning. Denies any chest pain or nausea. Overall off continues to feel better than when she was admitted to the hospital. Notes Reviewed: Yes: Events from last night noted and discussed with Clinical Staff Current Medication List: Reviewed Currently: Reports: Cough, Wheezing. Denies: Nausea and Vomiting, Abdominal Pain, Fever/Chills, Chest Pain DVT Prophylaxis: Yes - Physical Examination Vital Signs and I&O: Last Vital Signs Temp 98 F 05/04/16 07:49 Pulse 96 05/04/16 08:59 Resp 20 05/04/16 07:49 BP 120/83 05/04/16 07:49 Pulse Ox 95 05/04/16 07:49 Oxygen Pulse Oxygen Saturation 95 O2 Device Nasal Cannula Oxygen Flow Rate 2 Fraction of Inspired Oxygen ( FIO2) Intake & Output 05/02/16 05/03/16 05/04/16 05/05/16 06:59 06:59 06:59 06:59 Intake Total 697 3253 2084 240 Output Total 700 1350 800 Balance -3 1903 1284 240 Patient's weight 73.301 kg 74.298 kg 74.571 kg General: Alert, Oriented x3, Mild distress HEENT: EOMI (Sclera white) Neck: Normal Trachea alignment, Normal inspection Lymphatics: Normal (No cervical lymphadenopathy. No supraclavicular lymphadenopathy.) Respiratory: Diminished, Rhonchi, Wheezes Cardiovascular: No Gallops,Rubs/Murmurs, Irregular GI: Normal bowel sounds, Soft, Non tender (non distended) Extremities/Musculoskeletal: Other (Normal Tone). negative: Edema, Cyanosis Skin: No rashes, No significant lesion Lab/DI/Studies Reviewed: Laboratory Tests 05/01/16 05/02/16 05/02/16 17:31 04:35 04:35 WBC 12.3 H INR Potassium 4.1 BUN 18 H Creatinine 1.30 H 1.40 H 05/02/16 04:35 WBC INR 1.1 Potassium BUN Creatinine - Assessment (1) Acute confusion due to infection Acute F05 - DELIRIUM DUE TO KNOWN PHYSIOLOGICAL CONDITION Comment/Plan: Patient has episodes of becoming very confused when she gets ill. When initially admitted in her fever. Her altered mental status is now improving. (2) Atrial fibrillation with RVR Acute I48.91 - UNSPECIFIED ATRIAL FIBRILLATION Comment/Plan: Patient was admitted to the PCU on diltiazem drip. Patient's amiodarone was continued, and beta-erasto was started by Cardiology. IV diltiazem drip was discontinued yesterday, she has decently good rate control at this time. She is on metoprolol as well, which will be titrated by Cardiology. (3) Community acquired pneumonia Acute J18.9 - PNEUMONIA, UNSPECIFIED ORGANISM Comment/Plan: Patient with persistent cough, and continue low-grade fevers. Given chest x-ray abnormality seen on May 03 with persistent low-grade fevers, she was started empirically on IV azithromycin and Rocephin for possible community-acquired pneumonia. Add breathing treatments today. (4) Dementia Acute F03.90 - UNSPECIFIED DEMENTIA WITHOUT BEHAVIORAL DISTURBANCE Qualifiers: Dementia type: unspecified type Dementia behavioral disturbance: without behavioral disturbance Qualified Code(s): F03.90 - Unspecified dementia without behavioral disturbance Comment/Plan: Will monitor closely and provide supportive care. Expect patient will have episodes of sundowning while in the hospital. (5) Flu-like symptoms Acute R68.89 - OTHER GENERAL SYMPTOMS AND SIGNS Comment/Plan: Influenza negative. (6) CKD (chronic kidney disease) stage 3, GFR 30-59 ml/min Chronic N18.3 - CHRONIC KIDNEY DISEASE, STAGE 3 (MODERATE) Comment/Plan: monitor renal function closely
--- NOTE | 2016-05-04 10:35 | PCM.CARD ---
- Subjective Reason for visit: f/u recurrent afib; viral syndrome Subj: Again, pt has little to say. Denies pain, dyspnea, lightheadedness. Constanza MERAZ [id number] Radha visiting, notes pt lives alone, hasn't been doing well, pt's is in [place] in [place] Vital Signs: Last Vital Signs Temp 98 F 05/04/16 07:49 Pulse 95 05/04/16 10:00 Resp 20 05/04/16 07:49 BP 120/83 05/04/16 07:49 Pulse Ox 95 05/04/16 08:00 PE: Physical Exam GEN: Elderly, a little lethargic, VS: as above HEENT: no JVD CHEST: clear COR: irreg irreg, Gr 2/6 NELSON , no s3 ABD: no distention EXTREM: no edema SKIN: warm, dry NEURO: alert, responsive, no focal deficit Lab/DI Results Reviewed: Laboratory Tests 05/02/16 05/02/16 04:35 04:35 Sodium 139 Potassium 4.1 Chloride 104 Carbon Dioxide 29 BUN 18 H Creatinine 1.40 H Estimated GFR (MDRD) 36 L Lld-P-Dzwxdlxjclh Pept 1800 No new labs. Tele: afib, rate controlled consistently on metoprolol IMPRESSION: stable cardiovascular status - given marked LA dilatation on echo, expect it may be difficult/ unrealistic to maintain NSR going forward, and pt appears to tolerate afib OK. - she is at high embolic risk (Chads-Vasc 6, 9.8% risk/yr) - Plan PLAN: will d/c amio, use less toxic meds for rate control and accept chronic afib - on low dose Xarelto, creat/GFR will need monitoring, use warfarin if GFR drops < 30 ml/min - anticoag is predicated on pt placement in SNF (prob with ) for PT, assist with transfers, monitoring of meds.
[2016-05-04] MEDS: AZITHROMYCIN 500 MG in D5W 250 ML IV SCH (12:04)
--- NOTE | 2016-05-04 13:25 | CAPUEKG ---
[place], [place] Test Date: 2016-05-03 Pat Name: LUCIO MERCEDES Department: Room: 448 Gender: Female Parent Educator: : Requested By: Order Number: Reading MD: Mayur Saavedra Measurements Intervals [place] Rate: 74 P: [place]: QRS: -6 QRSD: 82 T: -4 QT: 386 QTc: 428 Interpretive Statements Atrial fibrillation, rate controlled Nonspecific T wave abnormality, diffuse non-specific Since yesterday's tracing, rate is better controlled. Abnormal ECG Electronically Signed On 05-04-16 13:25:23 EST by Mayur Saavedra <[id number]> [id number]
--- NOTE | 2016-05-04 13:31 | CAPUEKG ---
[place], [place] Test Date: 2016-05-04 Pat Name: LCUIO MERCEDES Department: Room: 448 Gender: Female Cake Mixer: : Requested By: Order Number: Reading MD: Mayur Saavedra Measurements Intervals [place] Rate: 92 P: LA: QRS: -3 QRSD: 84 T: -12 QT: 360 QTc: 445 Interpretive Statements Atrial fibrillation Nonspecific T wave abnormality diffusely. No acute changes. Abnormal ECG Electronically Signed On 05-04-16 13:31:05 EST by Mayur Saavedra <[id number]> [id number]
[2016-05-04] MEDS: RIVAROXABAN 10 MG TAB PO SCH (16:24)
[2016-05-04] MEDS: ROSUVASTATIN 10 MG TAB PO SCH (20:57)
[2016-05-04] MEDS: MIRTAZAPINE 15 MG TAB PO SCH (20:57)
[2016-05-04] MEDS ORDERED: METOPROLOL TARTRATE 100 MG TAB PO SCH (21:00)
[2016-05-04] MEDS ORDERED: METOPROLOL TARTRATE 50 MG TAB PO ONE (22:00)
[2016-05-05] MEDS: hydrALAZINE 25 MG TAB PO SCH ×3 (06:09→21:29)
--- NOTE | 2016-05-05 07:35 | PCM.CARD ---
- Subjective Reason for visit: Atrial fibrillation, previously paroxysmal now persistent Current Assessment: Cough (Non productive). negative: Chest Pain, Orthopnea, Palpitations (She complains of diffuse weakness), Sputum, Shortness of Breath Vital Signs: Last Vital Signs Temp 98.2 F 05/05/16 04:08 Pulse 98 05/05/16 05:22 Resp 18 05/05/16 04:08 BP 123/70 05/05/16 04:08 Pulse Ox 95 05/05/16 04:08 Vital Signs Temp 98.2 F 05/05/16 04:08 Pulse 98 05/05/16 05:22 Resp 18 05/05/16 04:08 BP 123/70 05/05/16 04:08 Pulse Ox 95 05/05/16 04:08 Intake & Output 05/03/16 05/04/16 05/05/16 23:59 23:59 23:59 Intake Total 2779 1456 Output Total 800 400 Balance 1979 1056 Patient's weight 163 lb 12.8 oz 164 lb 6.4 oz 166 lb 1.6 oz Intake: IV Fluids 9 616 Left Wrist 9 616 Oral 720 840 Output: Urine 800 400 Other: Elimination Method Brief/Pediatric Diaper Brief/Pediatric Diaper Brief/ Pediatric Diaper Incontinent Incontinent Incontinent Number of Unmeasured 1 1 1 Voids Urine Color Yellow Yellow Stool Size Moderate Stool Description Soft Brown Wt Change in KG 0.998 kg gained 0.272 kg gained 0.771 kg gained Weight Change from 2.2 lb(s) gained 9.6 oz gained 1.7 lb(s) gained Previous Weight Weight (Calculated 74.298 74.571 75.342 Kilograms) PE: She appears frail Respiratory: Diminished Jugular Vein Distention: None Pulse Rhythm: Irregular EKG Rhythm: Atrial Fibrillation (Rate controlled) EKG Ectopy: negative: Runs >10 beats Heart Sounds: negative: S1 & S2 (Variable S1 no edema) Lab/DI Results Reviewed: Laboratory Tests 05/02/16 05/02/16 05/02/16 04:35 04:35 04:35 Hgb 12.9 Hct 39.0 Plt Count 209 Potassium 4.1 Creatinine 1.40 H Mdv-O-Tbtyfeitiww Pept 1800 - Assessment/Plan (1) Atrial fibrillation Chronic I48.91 - UNSPECIFIED ATRIAL FIBRILLATION Present on Admission: Yes persistent I48.1 - Persistent atrial fibrillation Comment/Plan: Rate controlled continue beta-erasto and anticoagulated with rivaroxaban reduced dose with CKD (2) Hypertensive chronic kidney disease with stage 1 through stage 4 chronic kidney disease, or unspecified chronic kidney disease Chronic I12.9 - HYPERTENSIVE CHRONIC KIDNEY DISEASE W STG 1-4/UNSP CHR KDNY Comment/Plan: Blood pressure controlled on a regimen including ARB and hydralazine - Plan I will sign off she can follow up as an outpatient electively at
[2016-05-05] MEDS: CEFTRIAXONE 1 GM in D5W 100 ML IV SCH (08:12)
[2016-05-05] MEDS ORDERED: LOSARTAN POTASSIUM 50 MG TAB PO SCH (09:00)
--- NOTE | 2016-05-05 09:10 | CAPUEKG ---
[place], [place] Test Date: 2016-05-05 Pat Name: LUCIO MERCEDES Department: Room: 448 Gender: Female Cane Flume Watcher: : Requested By: Order Number: Reading MD: Kai Flor MD Measurements Intervals [place] Rate: 93 P: [place]: QRS: -10 QRSD: 92 T: -69 QT: 370 QTc: 460 Interpretive Statements Atrial fibrillation Nonspecific ST and T wave abnormality, probably digitalis effect Abnormal ECG Electronically Signed On 05-05-16 09:09:14 EST by Kai Flor MD [id number]> [id number]
[2016-05-05] MEDS: POTASSIUM CHLORIDE 20 MEQ TAB PO SCH (09:44)
[2016-05-05] MEDS: FUROSEMIDE 40 MG TAB PO SCH (09:45)
[2016-05-05] MEDS: LOSARTAN POTASSIUM 50 MG TAB PO SCH (09:45)
[2016-05-05] MEDS: METOPROLOL TARTRATE 100 MG TAB PO SCH ×2 (09:45→21:28)
[2016-05-05] MEDS: CHOLECALCIFEROL 1000 UNITS TAB PO SCH (11:24)
[2016-05-05] MEDS: AZITHROMYCIN 500 MG in D5W 250 ML IV SCH (11:24)
[2016-05-05] MEDS ORDERED: MIRTAZAPINE 15 MG TAB PO SCH (14:04)
--- NOTE | 2016-05-05 14:09 | GENMEDPROG ---
Subjective Note: Patient in chair responsive follows commands. Still coughing producing small amount of thick sputum. Still occasional chest tightness and wheezes and occasional palpitations. Denies any PND orthopnea. Ambulated outside her room today. P.o. intake poor generally feel weak tired and very fatigued. Notes Reviewed: Yes: Events from last night noted and discussed with Clinical Staff Current Medication List: Reviewed Currently: Reports: Cough, Wheezing, MURILLO, SOB, Sputum, Reflux Sx. Denies: Nausea and Vomiting, Abdominal Pain, Fever/Chills, Chest Pain DVT Prophylaxis: Yes - Physical Examination Vital Signs and I&O: Last Vital Signs Temp 98.1 F 05/05/16 12:15 Pulse 84 05/05/16 12:15 Resp 18 05/05/16 12:15 BP 116/74 05/05/16 12:15 Pulse Ox 95 05/05/16 12:15 Oxygen Pulse Oxygen Saturation 95 O2 Device Nasal Cannula Oxygen Flow Rate 1 Fraction of Inspired Oxygen ( FIO2) Intake & Output 05/02/16 05/03/16 05/04/16 05/05/16 23:59 23:59 23:59 23:59 Intake Total 2874 2779 1456 240 Output Total 1450 800 400 100 Balance 1424 1979 1056 140 Patient's weight 73.301 kg 74.298 kg 74.571 kg 75.342 kg General: Alert, Oriented x3, Cooperative, Mild distress HEENT: Normal, PERRLA, EOMI, Anicteric Sclera Neck: Non-tender, Normal Trachea alignment, Limited range of motion Lymphatics: Normal, Adenopathy Respiratory: Normal - CTA, Diminished, Rhonchi Cardiovascular: Regular rate, Normal S1, Normal S2, Murmurs GI: Normal bowel sounds, Soft, Non tender, No hepatospenomegaly, No masses Extremities/Musculoskeletal: Edema, Strength, DJD Skin: Warm,Dry and Intact, No rashes, No breakdown, No significant lesion Neurological: Normal speech, Cranial nerves 3-12 NL Psych/Mental Status: Anxious Lab/DI/Studies Reviewed: Last Vital Signs Temp 98.1 F 05/05/16 12:15 Pulse 84 05/05/16 12:15 Resp 18 05/05/16 12:15 BP 116/74 05/05/16 12:15 Pulse Ox 95 05/05/16 12:15 05/02/16 04:35 05/02/16 04:35 - Assessment (1) Atrial fibrillation with RVR Acute I48.91 - UNSPECIFIED ATRIAL FIBRILLATION Comment/Plan: Follow by Cardiology. Rate under much better control. Keep K more than 4 magnesium more than 2 (2) Community acquired pneumonia Acute J18.9 - PNEUMONIA, UNSPECIFIED ORGANISM Comment/Plan: Continue IV antibiotics in the form of Rocephin and Zithromax continue nebulized bronchodilators and mucolytics. (3) Dementia Acute F03.90 - UNSPECIFIED DEMENTIA WITHOUT BEHAVIORAL DISTURBANCE Qualifiers: Dementia type: unspecified type Dementia behavioral disturbance: without behavioral disturbance Qualified Code(s): F03.90 - Unspecified dementia without behavioral disturbance Comment/Plan: Continue supportive care, minimize sedation avoid anticholinergics (4) CKD (chronic kidney disease) stage 3, GFR 30-59 ml/min Chronic N18.3 - CHRONIC KIDNEY DISEASE, STAGE 3 (MODERATE) Comment/Plan: monitor renal function closely, avoid nephrotoxins. (5) Physical deconditioning Acute R53.81 - OTHER MALAISE Comment/Plan: Continue PTOT (6) HTN (hypertension) Acute I10 - ESSENTIAL (PRIMARY) HYPERTENSION Qualifiers: Hypertension type: essential hypertension Qualified Code(s): I10 - Essential (primary) hypertension Comment/Plan: Continue meds keep SBP around 140 (7) Dyslipidemia Chronic E78.5 - HYPERLIPIDEMIA, UNSPECIFIED Comment/Plan: On Crestor Case Care Discussed with: Patient, Consultants, Family, Nursing Staff, Respiratory Therapy, Pouncer Education/Counseling Given To: Patient Education/Counseling Given Regarding: Diagnosis, Treatment, Prognosis, Follow Up Total Time: 45 min . Critical Care: No Code: 27801 (12+)
[2016-05-05] MEDS: SODIUM CHLORIDE 0.9% 3 ML FLUSH FLUSH SCH (15:58)
[2016-05-05] MEDS: RIVAROXABAN 10 MG TAB PO SCH (16:00)
[2016-05-05] MEDS: ROSUVASTATIN 10 MG TAB PO SCH (21:28)
[2016-05-05] MEDS: GUAIFENESIN 600 MG LA TAB PO SCH (21:43)
[2016-05-06 02:00] LABS: BLOOD UREA NITROGEN 32 MG/DL (7-17); CALCIUM 8.2 MG/DL (8.4-10.2); CALCULATED OSMOLALITY 277 MOs/Kg (270-290); CHLORIDE 102 mEq/L (98-107); GLUCOSE 138 mg/dL (70-99); SODIUM LEVEL 139 mEq/L (137-146)
[2016-05-06] MEDS: KCl 10 mEq/100 ml Premix (Run) 10 MEQ/100 ML RTU IV SCH ×4 (03:36→09:40)
[2016-05-06 05:34] LABS: MPV 8.2 fL (7.4-10.4)
[2016-05-06 05:38] VITALS: BMI 27.1
[2016-05-06] MEDS: hydrALAZINE 25 MG TAB PO SCH ×2 (05:40→12:34)
[2016-05-06] MEDS: SODIUM CHLORIDE 0.9% 3 ML FLUSH FLUSH SCH (05:40)
[2016-05-06] MEDS: METOPROLOL TARTRATE 100 MG TAB PO SCH (07:44)
[2016-05-06] MEDS: GUAIFENESIN 600 MG LA TAB PO SCH (07:44)
[2016-05-06] MEDS: FUROSEMIDE 40 MG TAB PO SCH (07:45)
[2016-05-06] MEDS: POTASSIUM CHLORIDE 20 MEQ TAB PO SCH (07:45)
[2016-05-06] MEDS: LOSARTAN POTASSIUM 50 MG TAB PO SCH (07:45)
--- NOTE | 2016-05-06 07:53 | PCM.CARD ---
- Subjective Reason for visit: For atrial fibrillation Current Assessment: No New Symptoms. negative: Chest Pain, Dizzines (She relates she has yet to ambulate), Palpitations, Shortness of Breath Vital Signs: Last Vital Signs Temp 97.6 F 05/06/16 05:33 Pulse 90 05/06/16 06:10 Resp 18 05/06/16 05:33 BP 148/91 05/06/16 05:33 Pulse Ox 95 05/06/16 05:33 Selected Entries 05/06/16 05/06/16 05/06/16 00:47 01:50 04:15 Pulse Rate 100 95 89 05/06/16 05/06/16 05:33 06:10 Pulse Rate 95 90 PE: She does not appear acutely ill Respiratory: Normal - CTA Jugular Vein Distention: None Pulse Rhythm: Irregular EKG Rhythm: Atrial Fibrillation (Rate controlled) EKG Ectopy: negative: Runs >10 beats Heart Sounds: negative: S1 & S2 (Variable 1st heart sound), S3, Murmur (No edema ) Lab/DI Results Reviewed: Laboratory Tests 05/01/16 05/01/16 05/02/16 17:10 23:20 01:55 WBC 15.9 H Hgb Hct Potassium Creatinine Magnesium Troponin I 0.07 0.06 05/02/16 05/06/16 05/06/16 04:35 01:25 05:00 WBC 19.0 H Hgb 11.6 L D Hct 34.9 L Potassium 3.0 L Creatinine 1.30 H Magnesium 1.90 Troponin I 0.06 - Assessment/Plan (1) Atrial fibrillation Chronic I48.91 - UNSPECIFIED ATRIAL FIBRILLATION Present on Admission: Yes persistent I48.1 - Persistent atrial fibrillation Comment/Plan: Rates controlled continue beta-erasto anticoagulant, I will sign off and she will follow up in our office as an outpatient (2) Hypertensive chronic kidney disease with stage 1 through stage 4 chronic kidney disease, or unspecified chronic kidney disease Chronic I12.9 - HYPERTENSIVE CHRONIC KIDNEY DISEASE W STG 1-4/UNSP CHR KDNY Comment/Plan: Blood pressure stable continue current treatment
--- NOTE | 2016-05-06 10:48 | PCM.DCS92 ---
- Final/Secondary Discharge Diagnosis (1) Atrial fibrillation with RVR Acute I48.91 - UNSPECIFIED ATRIAL FIBRILLATION Present on Admission: Yes Comment: Follow by Cardiology. Rate under much better control. Keep K more than 4 magnesium more than 2 (2) Community acquired pneumonia Acute J18.9 - PNEUMONIA, UNSPECIFIED ORGANISM Present on Admission: Yes Comment: Continue po abx, continue nebulized bronchodilators and mucolytics. (3) Dementia Chronic F03.90 - UNSPECIFIED DEMENTIA WITHOUT BEHAVIORAL DISTURBANCE Present on Admission: Yes unspecified type without behavioral disturbance F03.90 - Unspecified dementia without behavioral disturbance Comment: Continue supportive care, minimize sedation avoid anticholinergics (4) CKD (chronic kidney disease) stage 3, GFR 30-59 ml/min Chronic N18.3 - CHRONIC KIDNEY DISEASE, STAGE 3 (MODERATE) Present on Admission: Yes Comment: monitor renal function closely, avoid nephrotoxins. (5) Physical deconditioning Acute R53.81 - OTHER MALAISE Present on Admission: Yes Comment: Continue PTOT (6) HTN (hypertension) Chronic I10 - ESSENTIAL (PRIMARY) HYPERTENSION Present on Admission: Yes essential hypertension I10 - Essential (primary) hypertension Comment: Continue meds keep SBP around 140 (7) Dyslipidemia Chronic E78.5 - HYPERLIPIDEMIA, UNSPECIFIED Present on Admission: Yes Comment: On Crestor Discharge Disposition: Nursing Home Facility Discharge Condition: Improved Cognitive Discharge Status: Unimpaired Fuctional Discharge Status: Independent, Walker Assistance Forms: ED Discharge Instructions Physician Follow up/Referrals: Jake Diallo MD [Primary Care Provider] - F/U Facility Physician Home Medications / New Prescriptions: New Albuterol/Ipratropium Neb [Duoneb] 3 ml NEB Q6H #120 nebu Levofloxacin [Levaquin] 750 mg PO DAILY #7 tablet Losartan Potassium 50 mg PO DAILY #30 tab Mirtazapine 30 mg PO HS #30 tab Guaifenesin [Mucinex] 1,200 mg PO BID #20 tbmp.12hr Prednisone 10 mg PO DAILY #20 tab.ds.pk Alprazolam [Xanax] 0.5 mg PO Q6 PRN #40 tablet PRN Reason: Anxiety Rivaroxaban [Xarelto] 15 mg PO DAILY #30 tab Continue Rosuvastatin [Crestor] 10 mg PO HS Potassium Chloride [Klor-Con M20] 20 meq PO DAILY Losartan/Hydrochlorothiazide [Hyzaar 50-12.5 Tablet] 1 tab PO DAILY HydrALAZINE (Cardiovascular) [Apresoline] 12.5 mg PO TID Furosemide [Lasix] 40 mg PO DAILY #60 tablet Aspirin [Aspirin EC] 325 mg PO DAILY #120 tablet. Cholecalciferol (Vitamin D3) [Vitamin D3] 2,000 unit PO DAILY Amiodarone [Cordarone, Pacerone] 200 mg PO DAILY Discontinued Mirtazapine [Remeron] 15 mg PO HS O2 Device: Nasal Cannula Oxygen to be used after Discharge: Continuous Diet at Discharge: Cardiac, Low Salt Activity: As Tolerated Call Office For: Fever over 101 F Discontinue use of:: Alcohol, All Illegal Substances, All Types of Tobacco - DC Summary Notes Hospital Course Note:: Discharge summary on patient named ULCIO MERCEDES admitted to [facility] on 05/01/16 by Katie Tillman MD. Date of discharge is []. Patient initially present emergency room on May 01 for evaluation of generalized weakness, cough, phlegm production worsening difficulties breathing and heart racing. Patient has initially presented to urgent care however given respiratory compromise and rapid heartbeat was transferred to ED for further evaluation. Upon arrival in ED she was found in moderate respiratory distress in atrial fibrillation with heart rate in 140s please refer to admission note for further details. Her initial temp was 101.5, chest x-ray idania suspicion for left-sided pneumonia. Patient was started on Cardizem drip and admitted to telemetry floor. Throughout hospital stay patient has required potassium and magnesium replacement. Cardiology consultation was obtained and she was seen by Dr. mattie Holloway, initially treatment with Cardizem was continued metoprolol was added, she was anticoagulated with reduced dose of Xarelto. 2D echo was obtained which showed EF between 60 and 65%, mild MR and aortic sclerosis, no regional wall motion abnormalities. Patient received IV antibiotics in the form of Rocephin and Zithromax and her pulmonary status has slowly but progressively improved and stabilized. She required nebulized bronchodilators as well. Most of the outpatient regimen for chronic medical conditions was continued. She was seen by PT OT and her activity level was gradually advanced. By the time of discharge patient was able to ambulate down the hallways with minimal exertional dyspnea. Given problems with gait balance and transfers skilled physical therapy was indicated. There was no bleeding complications related to Xolair to during hospital stay. On May 06 patient has accepted bed at [facility] and in clinically improved condition she has been tramnsferred there for skilled care. Total Time: 45 min. Code: 67274 (>30min.) - Physical Exam Vital Signs: Last Vital Signs Temp 97.4 F L 05/06/16 07:59 Pulse 98 05/06/16 10:33 Resp 18 05/06/16 07:59 BP 115/73 05/06/16 07:59 Pulse Ox 95 05/06/16 08:24 Oxygen Pulse Oxygen Saturation 95 O2 Device Nasal Cannula Oxygen Flow Rate 2 Fraction of Inspired Oxygen ( FIO2) Constitutional: Alert, Well nourished. negative: Restless, Well appearing Oriented to: Time, Person, Place - HEENT Head: Normal (normocephalic, atraumatic.), Other (No cervical lymphadenopathy. No supraclavicular lymphadenopathy. Neck: No palpable mass, supple , trachea midline.) Eye: Normal (pupils equal, reactive to light, and round; EOMI, Sclera white) Oropharynx: Normal (Pharynx: Moist without exudate,Gums-no swelling, No oropharyngeal lesions or erythema, Mucous membranes are dry.) ENT EAC: Normal Nose: No Symptoms Reported (septum midline, Nares patent, without discharge or bleeding.) - Respiratory/Cardiovascular Respiratory: Normal - CTA, Diminished, Rhonchi. negative: Wheezes Cardiovascular: Normal, Systolic murmur - GI Auscultation: Normal (normal active sounds) Palpation: Normal (Soft,non distended,nontender. No hepatosplenomegaly.) Tenderness: Non tender (No rebound or guarding) Abraham's Sign: Negative Rectal Exam: Deferred - Exam Deferred: Yes - Musculoskeletal Back: Normal (Non-Tender) Extremities: Normal (Normal tone, DP pulses 2+ bilaterally, No cyanosis or edema bilaterally, FROM bilaterally.) - Integumentary Skin: Normal, Warm, Dry Lymphatics: Normal, Adenopathy - Neurologic Memory Impaired: Normal Motor Function: Abnormal Cranial Nerve: Normal Cerebellar: Normal (Babinski: toes downgoing bilaterally. Intact Finger to nose. Sensory grossly intact to light touch. Intact rapid alternating movements bilaterally. No pronator drift.), Ataxia Mood Description: Normal (Fully oriented. Normal and appropriate affect.), Anxious Thought: Coherent Perception: Normal (Normal and appropriate affect.) - Other Exam Other Exam Findings: Allergies No Known Allergies Allergy (Verified 05/01/16 17:13) Last Vital Signs Temp 97.4 F L 05/06/16 07:59 Pulse 98 05/06/16 10:33 Resp 18 05/06/16 07:59 BP 115/73 05/06/16 07:59 Pulse Ox 95 05/06/16 08:24 05/06/16 05:00 05/06/16 01:25 Discharge Home Medication List Losartan/Hydrochlorothiazide [Hyzaar 50-12.5 Tablet] 1 tab PO DAILY 06/28/14 [ History Confirmed 05/01/16] Potassium Chloride [Klor-Con M20] 20 meq PO DAILY 06/28/14 [History Confirmed ] Rosuvastatin [Crestor] 10 mg PO HS 06/28/14 [History Confirmed 05/01/16] HydrALAZINE (Cardiovascular) [Apresoline] 12.5 mg PO TID 12/31/15 [History Confirmed 05/01/16] Aspirin [Aspirin EC] 325 mg PO DAILY #120 tablet. 01/02/16 [Rx Confirmed 05/01] Furosemide [Lasix] 40 mg PO DAILY #60 tablet 01/02/16 [Rx Confirmed 05/01/16] Amiodarone [Cordarone, Pacerone] 200 mg PO DAILY 05/01/16 [History Confirmed 05/16] Cholecalciferol (Vitamin D3) [Vitamin D3] 2,000 unit PO DAILY 05/01/16 [History Confirmed 05/01/16] Albuterol/Ipratropium Neb [Duoneb] 3 ml NEB Q6H #120 nebu 05/06/16 [Rx] Alprazolam [Xanax] 0.5 mg PO Q6 PRN #40 tablet 05/06/16 [Rx] Guaifenesin [Mucinex] 1,200 mg PO BID #20 tbmp.12hr 05/06/16 [Rx] Levofloxacin [Levaquin] 750 mg PO DAILY #7 tablet 05/06/16 [Rx] Losartan Potassium 50 mg PO DAILY #30 tab 05/06/16 [Rx] Mirtazapine 30 mg PO HS #30 tab 05/06/16 [Rx] Prednisone 10 mg PO DAILY #20 tab.ds.pk 05/06/16 [Rx] Rivaroxaban [Xarelto] 15 mg PO DAILY #30 tab 05/06/16 [Rx] New Discharge Medications (Rx) Albuterol/Ipratropium Neb [Duoneb] 3 ml NEB Q6H #120 nebu 05/06/16 [Rx] Alprazolam [Xanax] 0.5 mg PO Q6 PRN #40 tablet 05/06/16 [Rx] Guaifenesin [Mucinex] 1,200 mg PO BID #20 tbmp.12hr 05/06/16 [Rx] Levofloxacin [Levaquin] 750 mg PO DAILY #7 tablet 05/06/16 [Rx] Losartan Potassium 50 mg PO DAILY #30 tab 05/06/16 [Rx] Mirtazapine 30 mg PO HS #30 tab 05/06/16 [Rx] Prednisone 10 mg PO DAILY #20 tab.ds.pk 05/06/16 [Rx] Rivaroxaban [Xarelto] 15 mg PO DAILY #30 tab 05/06/16 [Rx] Home Medications Losartan/Hydrochlorothiazide [Hyzaar 50-12.5 Tablet] 1 tab PO DAILY 06/28/14 Potassium Chloride [Klor-Con M20] 20 meq PO DAILY 06/28/14 Rosuvastatin [Crestor] 10 mg PO HS 06/28/14 HydrALAZINE (Cardiovascular) [Apresoline] 12.5 mg PO TID 12/31/15 Aspirin [Aspirin EC] 325 mg PO DAILY #120 tablet. 01/02/16 Furosemide [Lasix] 40 mg PO DAILY #60 tablet 01/02/16 Amiodarone [Cordarone, Pacerone] 200 mg PO DAILY 05/01/16 Cholecalciferol (Vitamin D3) [Vitamin D3] 2,000 unit PO DAILY 05/01/16 Albuterol/Ipratropium Neb [Duoneb] 3 ml NEB Q6H #120 nebu 05/06/16 Alprazolam [Xanax] 0.5 mg PO Q6 PRN #40 tablet 05/06/16 Guaifenesin [Mucinex] 1,200 mg PO BID #20 tbmp.12hr 05/06/16 Levofloxacin [Levaquin] 750 mg PO DAILY #7 tablet 05/06/16 Losartan Potassium 50 mg PO DAILY #30 tab 05/06/16 Mirtazapine 30 mg PO HS #30 tab 05/06/16 Prednisone 10 mg PO DAILY #20 tab.ds.pk 05/06/16 Rivaroxaban [Xarelto] 15 mg PO DAILY #30 tab 05/06/16 05/06/16 05:00 05/06/16 01:25 Abnormal Lab Results 05/06/16 05/06/16 01:25 05:00 WBC 19.0 H RBC 3.83 L Hgb 11.6 L D Hct 34.9 L RDW 15.4 H Potassium 3.0 L BUN 32 H Creatinine 1.30 H Estimated GFR (MDRD) 40 L Glucose 138 H Calcium 8.2 L Phosphorus 2.3 L Discharge Home Medication List Losartan/Hydrochlorothiazide [Hyzaar 50-12.5 Tablet] 1 tab PO DAILY 06/28/14 [ History Confirmed 05/01/16] Potassium Chloride [Klor-Con M20] 20 meq PO DAILY 06/28/14 [History Confirmed ] Rosuvastatin [Crestor] 10 mg PO HS 06/28/14 [History Confirmed 05/01/16] HydrALAZINE (Cardiovascular) [Apresoline] 12.5 mg PO TID 12/31/15 [History Confirmed 05/01/16] Aspirin [Aspirin EC] 325 mg PO DAILY #120 tablet. 01/02/16 [Rx Confirmed 05/01] Furosemide [Lasix] 40 mg PO DAILY #60 tablet 01/02/16 [Rx Confirmed 05/01/16] Amiodarone [Cordarone, Pacerone] 200 mg PO DAILY 05/01/16 [History Confirmed 05/16] Cholecalciferol (Vitamin D3) [Vitamin D3] 2,000 unit PO DAILY 05/01/16 [History Confirmed 05/01/16] Albuterol/Ipratropium Neb [Duoneb] 3 ml NEB Q6H #120 nebu 05/06/16 [Rx] Alprazolam [Xanax] 0.5 mg PO Q6 PRN #40 tablet 05/06/16 [Rx] Guaifenesin [Mucinex] 1,200 mg PO BID #20 tbmp.12hr 05/06/16 [Rx] Levofloxacin [Levaquin] 750 mg PO DAILY #7 tablet 05/06/16 [Rx] Losartan Potassium 50 mg PO DAILY #30 tab 05/06/16 [Rx] Mirtazapine 30 mg PO HS #30 tab 05/06/16 [Rx] Prednisone 10 mg PO DAILY #20 tab.ds.pk 05/06/16 [Rx] Rivaroxaban [Xarelto] 15 mg PO DAILY #30 tab 05/06/16 [Rx] New Discharge Medications (Rx) Albuterol/Ipratropium Neb [Duoneb] 3 ml NEB Q6H #120 nebu 05/06/16 [Rx] Alprazolam [Xanax] 0.5 mg PO Q6 PRN #40 tablet 05/06/16 [Rx] Guaifenesin [Mucinex] 1,200 mg PO BID #20 tbmp.12hr 05/06/16 [Rx] Levofloxacin [Levaquin] 750 mg PO DAILY #7 tablet 05/06/16 [Rx] Losartan Potassium 50 mg PO DAILY #30 tab 05/06/16 [Rx] Mirtazapine 30 mg PO HS #30 tab 05/06/16 [Rx] Prednisone 10 mg PO DAILY #20 tab.ds.pk 05/06/16 [Rx] Rivaroxaban [Xarelto] 15 mg PO DAILY #30 tab 05/06/16 [Rx] Home Medications Losartan/Hydrochlorothiazide [Hyzaar 50-12.5 Tablet] 1 tab PO DAILY 06/28/14 Potassium Chloride [Klor-Con M20] 20 meq PO DAILY 06/28/14 Rosuvastatin [Crestor] 10 mg PO HS 06/28/14 HydrALAZINE (Cardiovascular) [Apresoline] 12.5 mg PO TID 12/31/15 Aspirin [Aspirin EC] 325 mg PO DAILY #120 tablet. 01/02/16 Furosemide [Lasix] 40 mg PO DAILY #60 tablet 01/02/16 Amiodarone [Cordarone, Pacerone] 200 mg PO DAILY 05/01/16 Cholecalciferol (Vitamin D3) [Vitamin D3] 2,000 unit PO DAILY 05/01/16 Albuterol/Ipratropium Neb [Duoneb] 3 ml NEB Q6H #120 nebu 05/06/16 Alprazolam [Xanax] 0.5 mg PO Q6 PRN #40 tablet 05/06/16 Guaifenesin [Mucinex] 1,200 mg PO BID #20 tbmp.12hr 05/06/16 Levofloxacin [Levaquin] 750 mg PO DAILY #7 tablet 05/06/16 Losartan Potassium 50 mg PO DAILY #30 tab 05/06/16 Mirtazapine 30 mg PO HS #30 tab 05/06/16 Prednisone 10 mg PO DAILY #20 tab.ds.pk 05/06/16 Rivaroxaban [Xarelto] 15 mg PO DAILY #30 tab 05/06/16
[2016-05-06] MEDS ORDERED: POTASSIUM CHLORIDE 20 MEQ TAB PO ONE (11:30)
[2016-05-06 12:25] VITALS: BP 136/85; TEMP 97.3
[2016-05-06] MEDS: CHOLECALCIFEROL 1000 UNITS TAB PO SCH (12:34)
[2016-05-06] MEDS: CEFTRIAXONE 1 GM in D5W 100 ML IV SCH (12:35)
--- NOTE | 2016-05-06 14:31 | CAPUEKG ---
[place], [place] Test Date: 2016-05-06 Pat Name: LUCIO MERCEDES Department: Room: 448 Gender: Female It Service Delivery Manager: : Requested By: Order Number: Reading MD: Kai Flor MD Measurements Intervals [place] Rate: 85 P: VA: QRS: -6 QRSD: 92 T: -53 QT: 354 QTc: 421 Interpretive Statements Atrial fibrillation ST \T\ T wave abnormality, consider lateral ischemia or digitalis effect Abnormal ECG Electronically Signed On 05-06-16 14:31:03 EST by Kai Flor MD [id number] [id number]
[2016-05-06 14:39] VITALS: PULSE 88
== END 2016-05-06 16:40 | DRG 308 ==
LOC: ED 17:00 → PCU 19:34
PROVIDERS: ADMIT Hospitalist; ATTEND Internal Medicine
PROC: B246ZZZ Ultrasonography of Right and Left Heart (ICD-10-PCS; principal; 2016-05-03)
DX: I48.0 Paroxysmal atrial fibrillation (principal); J18.9 Pneumonia, unspecified organism; I69.351 Hemiplegia and hemiparesis following cerebral infarction affecting right dominant side; F05 Delirium due to known physiological condition; F03.90 Unspecified dementia, unspecified severity, without behavioral disturbance, psychotic disturbance, mood disturbance, and anxiety; N18.3 Chronic kidney disease, stage 3 (moderate); I12.9 Hypertensive chronic kidney disease with stage 1 through stage 4 chronic kidney disease, or unspecified chronic kidney disease; R53.81 Other malaise; R26.9 Unspecified abnormalities of gait and mobility; E78.00 Pure hypercholesterolemia, unspecified; Z60.2 Problems related to living alone; Z66 Do not resuscitate; Z90.710 Acquired absence of both cervix and uterus; Z79.82 Long term (current) use of aspirin; Z82.49 Family history of ischemic heart disease and other diseases of the circulatory system
CPT/HCPCS: 36415; 71010; 80048; 80053; 81001; 83605; 83735; 83880; 84100; 84443; 84484; 85025; 85027; 85610; 85730; 87040; 87086; 87804; 93005; 93306; 96361; 96365; 96366; 96372; 97162; 99284; G0237; J0456; J0696; J1650; J3480; J3490; J7040; J7060; J7070